=== PATIENT | female | born 1965 | race Caucasian/White ===

== ENCOUNTER 2016-04-19 19:24 | Emergency (ER) | payer OTHER ==
[~2016-04-19] VITALS: Ht 160 cm; Wt 64.0 kg
[~2016-04-19 19:24] MED LIST: ADVIL,NUPRIN,M200 MG PO; ADVIL200 MG PO; ATROPINE 1100 DROP/5 LEFT EYE; BENADRYL ALLERG25 MG PO; CLONAZEPAM1 MG PO; CLONAZEPAM2 MG PO; COUMADIN,JANTO2.5 MG PO; DILAUDID2 MG PO; DULCOLAX5 MG PO; FEOSOL325 MG PO; Folvite PO; HABITROL,NICODE14 MG TD; KENALOG,ARISTOC80 G1 TP; KENALOG,ARISTOC80 GM TP; KlonoPIN PO; MORPHINE SULFAT15 MG PO; MS CONTIN,ORAMO15 M1 PO; MS Contin,Oramorph S PO; NYSTATIN-TRIAMC15 GM TP; Oyst-Cal D, Oscal W/ PO; PEPTO BISMOL240 ML PO; PRED FORTE100 DROP/5 BOTH EYES; PROTONIX40 MG PO; SOMA350 MG PO; SYSTANE 0.3-0.1 EACH BOTH EYES; Senokot,Sennagen PO; Soma PO; THERA TEARS1 EAC1 BOTH EYES; THERAGRAN1 TABLET PO; TRIAMCINOLONE A15 G2 TP; TUMS500 MG PO; Tylenol Regular Stre PO; VALIUM5 MG PO; XALATAN2.5 ML BOTH EYES
[2016-04-19 22:16] VITALS: BP 128/77
== END 2016-04-19 22:24 | disposition home or self-care (01) ==
LOC: EME 19:24
DX: S70.01XA Contusion of right hip, initial encounter (principal); S50.01XA Contusion of right elbow, initial encounter; W01.0XXA Fall on same level from slipping, tripping and stumbling without subsequent striking against object, initial encounter; Z87.891 Personal history of nicotine dependence
CPT/HCPCS: 73552; 99281; 99284; J2270

== ENCOUNTER 2016-10-13 01:13 | Emergency (ER) | payer OTHER ==
[~2016-10-13] VITALS: Ht 160 cm; Wt 64.5 kg
[2016-10-13 03:22] VITALS: BP 119/73
== END 2016-10-13 03:34 | disposition home or self-care (01) ==
LOC: EME 01:13
DX: M54.40 Lumbago with sciatica, unspecified side (principal); M35.00 Sjogren syndrome, unspecified; M81.0 Age-related osteoporosis without current pathological fracture; M79.7 Fibromyalgia; M32.9 Systemic lupus erythematosus, unspecified; K21.9 Gastro-esophageal reflux disease without esophagitis; J45.909 Unspecified asthma, uncomplicated; F17.200 Nicotine dependence, unspecified, uncomplicated
CPT/HCPCS: 99281; 99284; J2270

== ENCOUNTER 2017-03-15 16:18 | Emergency (ER) | payer OTHER ==
[~2017-03-15] VITALS: Ht 160 cm; Wt 60.5 kg
[2017-03-15 20:42] VITALS: BP 125/67
== END 2017-03-15 20:43 | disposition home or self-care (01) ==
LOC: EME 16:18
DX: S40.022A Contusion of left upper arm, initial encounter (principal); S40.021A Contusion of right upper arm, initial encounter; S80.12XA Contusion of left lower leg, initial encounter; S80.11XA Contusion of right lower leg, initial encounter; M54.2 Cervicalgia; M25.532 Pain in left wrist; M25.511 Pain in right shoulder; M54.5 Low back pain; M25.551 Pain in right hip; M25.552 Pain in left hip; W01.0XXA Fall on same level from slipping, tripping and stumbling without subsequent striking against object, initial encounter; F17.200 Nicotine dependence, unspecified, uncomplicated
CPT/HCPCS: 72040; 73130; 73502; 99281; 99284; J2270; J3010